=== PATIENT | male | born 1955 | race Caucasian/White ===

== ENCOUNTER 2017-01-01 15:12 | Inpatient (IN) | payer MEDICARE, OTHER ==
--- NOTE | ~2017-01-01 | DS ---
Discharge Summary [facility] [address] [facility] [place]. [address] NAME: JEANETTE REYNOSO : 55 STATUS : ADM IN PAT#: [id number] AGE: 61 ADM/REG DATE : 01/01/17 MR#: [id number] REPORT SERV DATE: 01/10/17 DICTATED BY: MICAH PALOMO DATE: 01/10/17 REPORT STATUS : Draft TRANSCRIBED BY: MODL DATE: 01/10/17 ADMISSION DATE: 01/01/2017 DISCHARGE DATE: 01/10/2017 FINAL HOSPITAL DIAGNOSES: 1. Flu/pneumonia. 2. End-stage Lewy body dementia. 3. Acute kidney injury. CONSULTATIONS: Hospice. PROCEDURES: As listed in interim summary. CURRENT PHYSICAL FINDINGS AND HISTORY OF PRESENT ILLNESS: Please see initial dictated H and P on 12/28/[address] Serrato as well as summary by Dr. Seymour on 01/06/2017. I took over the patient's care on 01/10/2017 and will dictate to that point. The patient was to be transferred out on 01/06/2017; however, placement could not be obtained. He was finishing therapy for influenza and respiratory symptoms have been stable. He had been evaluated by hospice and they had accepted his care. Family members had been well informed of decisions and treatment plans and they were in full agreement. They felt he would need more care than could be delivered at [facility] and wished to go to [facility] with hospice services, which was certainly reasonable given his current situation. On the day of transfer, the family stated that the patient was at his baseline mental status. He was tolerating p.o. well. He was having routine bowel movements. He did not seem to be in any distress and they were comfortable with him discharging. His vital signs were stable. His exam showed good breath sounds. Regular heart rate and his abdominal exam, he had no guarding or rebound and he did have positive bowel sounds. DISPOSITION: He was discharged to [facility] with hospice care with orders and medications per hospice. CORTEZ/ADALGISA Micah Palomo M.D. / [id number] CC: Luzma Monsalve,KODY LAROSE
--- NOTE | ~2017-01-01 | DS ---
Discharge Summary [facility] [address] [place]. [address] NAME: JEANETTE DAVILA : 55 STATUS : DIS IN PAT#: [id number] AGE: 61 ADM/REG DATE : 01/01/17 MR#: [id number] REPORT SERV DATE: 01/11/17 DICTATED BY: MICAH PALOMO DATE: 01/11/17 REPORT STATUS : Draft TRANSCRIBED BY: MODL DATE: 01/11/17 ADMISSION DATE: 01/01/2017 DISCHARGE DATE: 01/11/2017 ADDENDUM: Mr. Davila was to be discharged yesterday to [facility] with hospice care, however, his PASSOR could not be validated yesterday. He was approved for discharge today. He was discharged to [facility] with hospice care prior to my arrival on today's date. MAGDYF/ADALGISA Micah Palomo M.D. / [id number] CC: Luzma Monsalve
--- NOTE | ~2017-01-01 | DS ---
Discharge Summary [facility] [address] [place]. [address] NAME: JEANETTE REYNOSO : 55 STATUS : ADM IN [facility]#: [id number] AGE: 61 ADM/REG DATE : 01/01/17 MR#: [id number] REPORT SERV DATE: 01/06/17 DICTATED BY: BINH FLOREZ DATE: 01/05/17 REPORT STATUS : Draft TRANSCRIBED BY: MODL DATE: 01/05/17 ADMISSION DATE: 01/01/2017 DISCHARGE DATE: 01/05/2017 PRINCIPAL DIAGNOSIS: Influenza type A. SECONDARY DIAGNOSIS: End-stage Lewy body dementia with acute metabolic encephalopathy, atelectasis. HISTORY OF PRESENT ILLNESS: Please see Dr. Serrato's dictation, 01/01/2017. HOSPITAL COURSE: Admitted with suspected pneumonia due to left lower lobe infiltrate but positive for flu A. The patient had high fevers lasting about four days that finally defervesced by 01/05/2017. He was given antibiotics empirically due to elevated procalcitonin and the abdomen infiltrate however follow up x-ray showed clearance of the atelectasis, but he did eventually wake up. He tolerated p.o., passed a bedside swallow evaluation, and ultimately was referred to a [facility] where the family wished to undergo hospice care. He was transferred on 01/05/2017 in satisfactory condition finishing a Tamiflu tomorrow and Levaquin in two days. Efforts to ongoing weaning of his psychiatric medications were ongoing as he was beyond the point of benefit for acetylcholinesterase inhibitors or Namenda. Greater than 30 minutes were spent with the patient on discharge planning on discharge day. RADHA/ADALGISA Binh Florez M.D. / [id number] CC: Luzma Ratliff MD [facility]
--- NOTE | ~2017-01-01 | HP ---
History And Physical [place] [id number] [facility] [place]. [address] NAME: JEANETTE REYNOSO : 55 STATUS : REG ER PAT#: [id number] AGE: 61 ADM/REG DATE : 01/01/17 MR#: [id number] REPORT SERV DATE: 01/01/17 DICTATED BY: LUISANA ZAMARRIPA DATE: 01/01/17 REPORT STATUS : Draft TRANSCRIBED BY: MODL DATE: 01/01/17 DATE OF ADMISSION: 01/01/2017 HISTORY OF PRESENT ILLNESS: This is a 61-year-old male who presented to [facility] accompanied with his family. The patient has altered level of consciousness, and he is unable to respond, now he is completely unresponsive. He is staying at [facility], and he developed for symptoms on Monday. He was having cough. He became lethargic. His primary care physician is Tato Ruelas, but now because he is at [facility], he is seen by another physician. The patient's brother who is the power of transactional attorney reported that the patient has advanced Lewy body dementia, and now he is unable to take care of himself. He is dependent on his daily activities. He is not able to dress, he his unable to eat himself, so this is why he is in [facility]. On Monday he developed fever cough, nonproductive, he became lethargic yesterday and today. Yesterday when brother was feeding him, he noticed that he is not himself. Today, he was told that he needs to be brought to the hospital. The patient is lethargic, he is not opening his eyes, but he is responding to mild pinching with a smile. All history was collected from patient's brother and patient's girlfriend. The patient's brother reported that the patient was diagnosed with Lewy body dementia. His neurologist is Dr. Disla and he as I dictated above now progressed so much that he is unable to perform his daily activities and he is at [facility], as well as the patient's girlfriend reported that 2 years ago when he had illness, he responded same way, he became lethargic, and also at [facility] they thought maybe he aspirated also when he became lethargic. The patient's brother reported that the patient was in general health, he did not have any illnesses, and he did not have any surgeries other than tonsillectomy. ALLERGIES: HE IS NOT ALLERGIC TO ANY MEDICATIONS. SOCIAL HISTORY: No smoking. No alcohol. No recreational drug use. He does not have children. FAMILY HISTORY: Mother of rheumatoid arthritis at age of 62, father of congestive heart failure at the age of 93. HOME MEDICATIONS: Tylenol 325 p.o. q.4 hours p.r.n., acetylcysteine 600 mg b.i.d., aspirin 81 mg daily, vitamin D3 1000 units daily, Celexa 40 mg daily, Depakote 1000 mg with supper and 500 daily, Aricept 10 mg with supper, Mucinex 10 mL q.12 hours, Ativan 0.5 daily, Namenda 10 mg twice a day, prazosin 2 mg p.o. with supper, Seroquel 25 twice daily p.r.n. REVIEW OF SYSTEMS: I am unable to perform review of systems because the patient is unresponsive. PHYSICAL EXAMINATION: GENERAL: Well-nourished, well-developed male, not in acute distress. Has some wheezing on breathing. VITAL SIGNS: Blood pressure 115/74, temperature according to the patient's brother was 102.8 today and now 99.5, heart rate 91, respiratory rate 25, oxygen saturation 91 on 4 L nasal History And Physical [address] [address] NAME: JEANETTE REYNOSO : 55 STATUS : REG ER PAT#: [id number] AGE: 61 ADM/REG DATE : 01/01/17 MR#: [id number] REPORT SERV DATE: 01/01/17 DICTATED BY: LUISANA ZAMARRIPA DATE: 01/01/17 REPORT STATUS : Draft TRANSCRIBED BY: MODL DATE: 01/01/17 cannula. I want to mention that on presentation, he was on a non-rebreather, but now he is only on 4 L nasal cannula. HEENT: Head atraumatic, normocephalic. Conjunctivae clear. Pupils are equal and reactive to light and accommodation. Extraocular muscles are intact. NECK: Supple. Trachea is midline. No supraclavicular or cervical lymphadenopathy. LUNGS: Positive wheezing bilaterally, anteriorly and posteriorly. Normal respiratory effort. CARDIOVASCULAR SYSTEM: Regular rate and rhythm. Lkvdf-gy-fuplbof impulse not displaced. ABDOMEN: Soft, nontender, nondistended. Positive bowel sounds. No organomegaly. EXTREMITIES: No clubbing, cyanosis, or edema. NEUROLOGICAL: He is sleepy. He is lethargic. He is able to respond with smile to the pinching. His pupils are equal and reactive to light. He is not responsive to voice and touch. SKIN: Normal color and turgor. LABORATORY RESULTS: ABG: PH of 7.5, pCO2 of 30, PO2 of 59, bicarbonate 23.3, oxygen saturation 93.3 on 4 L of oxygen. Sodium 148, potassium 3.6, chloride 109, carbon dioxide 27, BUN 21, creatinine 1.47, blood sugar is 124. ALT 14, AST 32, troponin 0.22. White count 11.9, hemoglobin 15.6, hematocrit 44.4, and MCV 100.2, platelet count 77, there are 35% bands. Urinalysis showed trace ketones, no evidence of UTI. Blood cultures are already drawn in the emergency room and currently pending. Chest x-ray personally reviewed by me and showed infiltrate in the left lower lung. CT of the brain without contrast showed enlarged ventriculomegaly out of proportion to the enlargement of the overlying sulci. Differential diagnosis includes central pattern of diffuse cerebral involutional changes with marked progression since 2008. Stenosis at the level of aqueduct of Sylvius communicating hydrocephalus or normal pressure hydrocephalus. No acute intracranial hemorrhage. Pansinusitis with fluid levels within the bilateral frontal ethmoid and maxillary and sphenoid sinuses consistent with acute sinusitis pattern. ASSESSMENT AND PLAN: This is a 61-year-old male with advanced Lewy body dementia, currently detention, DNR status, presented with: 1. Unresponsiveness .. 2. Influenza type A. 3. Sepsis. 4. Fever. 5. Pneumonia. 6. Encephalopathy. 7. Acute kidney injury. 8. Thrombocytopenia. 9. Elevated troponin. History And Physical [address] [address] NAME: JEANETTE REYNOSO : 55 STATUS : REG ER PAT#: [id number] AGE: 61 ADM/REG DATE : 01/01/17 MR#: [id number] REPORT SERV DATE: 01/01/17 DICTATED BY: LUISANA ZAMARRIPA DATE: 01/01/17 REPORT STATUS : Draft TRANSCRIBED BY: MODL DATE: 01/01/17 10.DNR status. 11.Lewy body dementia. The patient will be admitted to telemetry bed. The patient for his dehydration and acute kidney injury, he will be started on IV fluids. For his pneumonia and sepsis, he will be started on intravenous cefepime, azithromycin, and vancomycin. Influenza type A, we will start him on Tamiflu if he will be able to take medications by mouth. Elevated troponin, most likely this is demand ischemia. We will also start the patient on low-dose steroids since he is wheezing as well. Overall, the patient is very sick, septic, and the patient is in DNR status and family is aware of this and my partner will see this patient starting tomorrow morning. We will also do frequent neuro checks and his thrombocytopenia also related to sepsis. MG/ADALGISA Luisana Zamarripa M.D. / [id number] CC: Priyank Gonzalez MD
[2017-01-01 14:12] LABS: HEMATOCRIT 44.4 % (40.0-51.0); HEMOGLOBIN 15.6 g/dL (13.6-17.8); MEAN CORPUS HGB CONC 35.1 g/dL (32.0-36.0); MEAN CORPUSCULAR HEMOGLOB 35.2 pg (26.0-34.0); MEAN PLATELET VOLUME 10.7 fL (9.2-13.0); RBC DISTRIBUTION WIDTH 12.5 % (12.0-16.0); RED CELL COUNT 4.43 10/6/uL (4.7-6.1); WHITE BLOOD CELLS 11.9 10/3/uL (4.5-10.5)
[2017-01-01 14:13] LABS: MANUAL DIFF YES %; MEAN CORPUSCULAR VOLUME 100.2 fL (80-100); PLATELET COUNT 77 10/3/uL (150-400)
[2017-01-01 14:26] LABS: ALLENS TEST Pos; BE (BASE EXCESS) 1.2 MEQ/L (0 +/- 2.5); CARBOXYHEMOGLOBIN 2.1 % (0-3); DEVICE NC; HCO3 (ACTUAL BICARBONATE) 23.3 MEQ/L (23-27); HEMOBLOGIN CONTENT 15.2 G/DL (14-18); INSTRUMENT SERIAL # 8087; METHEMOGLOBIN 0.3 % (0-3); O2 CONTENT 19.4 VOL% (18-24); OPERATOR ID 14335; PCO2 (CO2 TENSION) 30 MMHG (35-45); PO2 (O2 TENSION) 59 MMHG (79-93); SAMPLE Arterial
[2017-01-01 14:33] LABS: BAND NEUTROPHILS 35 %; ER DIFF TAT 0 Hrs 25 Mins; IMMATURE GRANS ABSOLUTE (CALC) 0.36 10/3/uL (0.0-0.11); LYMPHOCYTES 12 %; LYMPHOCYTES ABSOLUTE (CALC) 1.43 10/3/uL (0.67-4.30); METAMYELOCYTES 3 %; MONOCYTES 24 %; MONOCYTES ABSOLUTE (CALC) 2.86 10/3/uL (0.21-1.20); NEUTROPHILS ABSOLUTE (CALC) 7.26 10/3/uL (2.02-8.40); PLATELET ESTIMATE DEC (ADEQUATE); RBC MORPHOLOGY NORM (NORMAL); REACTIVE LYMPHS FEW (3-5%) (0-5%); SEGMENTED NEUTROPHIL (0) 26 %; TOTAL NUCLEATED CELLS 100
[2017-01-01 14:41] LABS: A/G RATIO 0.7 (0.7-1.9); CALCIUM, SERUM 9.2 MG/DL (8.5-10.4); CHLORIDE, SERUM 109 MMOL/L (96-112); CO2 (CARBON DIOXIDE) 27 MMOL/L (24-34); CREATININE 1.47 MG/DL (0.70-1.30); GFR AFRICAN AMERICAN 59 ML/MIN (>=60); GFR NON AFRICAN AMERICAN 51 ML/MIN (>=60); GLOBULIN 4.3 G/DL (2.5-4.1); POTASSIUM, SERUM 3.6 MMOL/L (3.5-5.3); SGOT(AST) 32 U/L (5-40); SGPT(ALT) 14 U/L (5-65); TOTAL BILIRUBIN 1.2 MG/DL (0-1.2); TOTAL PROTEIN 7.3 G/DL (6.0-8.5)
[2017-01-01 14:44] LABS: ALKALINE PHOSPHATASE 38 U/L (45-117); BUN (BLOOD UREA NITROGEN) 21 MG/DL (6-23); GLUCOSE, SERUM 124 MG/DL (60-99); SODIUM, SERUM 148 MMOL/L (135-148); TROPONIN I 0.22 NG/ML (<0.05)
[2017-01-01 15:09] LABS: ASCORBIC ACID (UR NOT ORDER) NEG (NEG); BILIRUBIN, URINE NEGATIVE (NEG); ER URINALYSIS TAT 0 Hrs 11 Mins; KETONE, URINE TRACE MG/DL (NEG); LEUKOCYTE ESTERASE(NOT OR NEG (NEG); NITRITE (URINE) NEG (NEG); WBC (NOT ORDERED) (RFLEX) 2 (0-5)
[2017-01-01] MEDS ORDERED: CELEXA40 MG PO (15:13)
[2017-01-01] MEDS ORDERED: HALF81 PO (15:13)
[2017-01-01] MEDS ORDERED: DEPAKOT500 PO ×2 (15:14→15:22)
[2017-01-01] MEDS ORDERED: ARICEPT10 PO (15:15)
[2017-01-01] MEDS ORDERED: SILTUSSIN100 MG/5 M PO (15:17)
[2017-01-01] MEDS ORDERED: ATV.5 PO (15:17)
[2017-01-01] MEDS ORDERED: PRAZOSIN HCL1 MG PO (15:18)
[2017-01-01] MEDS ORDERED: NAMENDA10 MG PO (15:18)
[2017-01-01] MEDS ORDERED: NAC 600 PO (15:19)
[2017-01-01] MEDS ORDERED: VITAMIN D31000 UNIT PO (15:20)
[2017-01-01] MEDS ORDERED: SEROQUEL25 PO (15:21)
[2017-01-01] MEDS ORDERED: T PO (15:21)
[2017-01-01 16:47] LABS: INFLUENZA A SCREEN POSITIVE (NEGATIVE); INFLUENZA B SCREEN NEGATIVE (NEGATIVE)
[2017-01-02 00:33] LABS: FOLATE 4.5 NG/ML (>5.2)
[2017-01-02 00:34] LABS: TROPONIN I 0.16 NG/ML (<0.05); ULTRASENSITIVE TSH 0.608 MCIU/ML (0.358-3.740)
[2017-01-02 00:46] LABS: PROCALCITONIN 4.22 ng/mL (<0.5)
[2017-01-02 07:00] LABS: BASOPHILS 0.2 %; BASOPHILS ABSOLUTE 0.02 10/3/uL (0.0-0.16); EOSINOPHILS 0 %; HEMATOCRIT 40.7 % (40.0-51.0); IMMATURE GRANULOCYTES 0.8 %; IMMATURE GRANULOCYTES ABSOLUTE 0.09 10/3/uL (0.0-0.11); LYMPHOCYTES 6.1 %; LYMPHOCYTES ABSOLUTE 0.66 10/3/uL (0.67-4.30); MEAN CORPUS HGB CONC 34.4 g/dL (32.0-36.0); MEAN CORPUSCULAR HEMOGLOB 34.2 pg (26.0-34.0); MEAN CORPUSCULAR VOLUME 99.5 fL (80-100); MEAN PLATELET VOLUME 10.8 fL (9.2-13.0); MONOCYTES 12.1 %; MONOCYTES ABSOLUTE 1.31 10/3/uL (0.21-1.20); NEUTROPHILS 80.8 %; NEUTROPHILS ABSOLUTE 8.75 10/3/uL (2.02-8.40); PLATELET COUNT 74 10/3/uL (150-400); RBC DISTRIBUTION WIDTH 12.5 % (12.0-16.0); RED CELL COUNT 4.09 10/6/uL (4.7-6.1); WHITE BLOOD CELLS 10.8 10/3/uL (4.5-10.5)
[2017-01-02 07:08] LABS: MANUAL DIFF NO %
[2017-01-02 07:24] LABS: BUN (BLOOD UREA NITROGEN) 22 MG/DL (6-23); CALCIUM, SERUM 8.7 MG/DL (8.5-10.4); CHLORIDE, SERUM 111 MMOL/L (96-112); CO2 (CARBON DIOXIDE) 25 MMOL/L (24-34); CREATININE 0.98 MG/DL (0.70-1.30); GFR AFRICAN AMERICAN 96 ML/MIN (>=60); GFR NON AFRICAN AMERICAN 83 ML/MIN (>=60); POTASSIUM, SERUM 3.2 MMOL/L (3.5-5.3); SODIUM, SERUM 147 MMOL/L (135-148)
[2017-01-02 07:25] LABS: GLUCOSE, SERUM 164 MG/DL (60-99)
[2017-01-02 13:17] LABS: DEPAKENE (VALPROIC ACID) 73.2 MCG/ML (50.0-100.0)
[2017-01-03 11:14] LABS: CREATININE 1.07 MG/DL (0.70-1.30)
[2017-01-04 04:58] LABS: HEMOGLOBIN 12.7 g/dL (13.6-17.8); MEAN CORPUS HGB CONC 35.6 g/dL (32.0-36.0); MEAN CORPUSCULAR HEMOGLOB 35.4 pg (26.0-34.0); MEAN CORPUSCULAR VOLUME 99.4 fL (80-100); MEAN PLATELET VOLUME 11.8 fL (9.2-13.0); RBC DISTRIBUTION WIDTH 12.7 % (12.0-16.0); RED CELL COUNT 3.59 10/6/uL (4.7-6.1); WHITE BLOOD CELLS 9.4 10/3/uL (4.5-10.5)
[2017-01-04 04:59] LABS: HEMATOCRIT 35.7 % (40.0-51.0); MANUAL DIFF YES %; PLATELET COUNT 195 10/3/uL (150-400)
[2017-01-04 05:33] LABS: BAND NEUTROPHILS 12 %; IMMATURE GRANS ABSOLUTE (CALC) 0.09 10/3/uL (0.0-0.11); LYMPHOCYTES 21 %; LYMPHOCYTES ABSOLUTE (CALC) 1.97 10/3/uL (0.67-4.30); METAMYELOCYTES 1 %; MONOCYTES 9 %; MONOCYTES ABSOLUTE (CALC) 0.85 10/3/uL (0.21-1.20); NEUTROPHILS ABSOLUTE (CALC) 6.49 10/3/uL (2.02-8.40); PLATELET ESTIMATE ADQ (ADEQUATE); RBC MORPHOLOGY NORM (NORMAL); SEGMENTED NEUTROPHIL (0) 57 %; TOTAL NUCLEATED CELLS 100
[2017-01-04 06:52] LABS: CALCIUM, SERUM 8.2 MG/DL (8.5-10.4); CHLORIDE, SERUM 112 MMOL/L (96-112); CO2 (CARBON DIOXIDE) 26 MMOL/L (24-34); DEPAKENE (VALPROIC ACID) 68.7 MCG/ML (50.0-100.0); GFR AFRICAN AMERICAN 106 ML/MIN (>=60); GFR NON AFRICAN AMERICAN 92 ML/MIN (>=60); GLUCOSE, SERUM 140 MG/DL (60-99); POTASSIUM, SERUM 3.4 MMOL/L (3.5-5.3); SODIUM, SERUM 148 MMOL/L (135-148)
[2017-01-04 06:54] LABS: BUN (BLOOD UREA NITROGEN) 17 MG/DL (6-23)
[2017-01-04 07:45] LABS: PROCALCITONIN 1.84 ng/mL (<0.5)
[2017-01-04 10:11] LABS: BUN (BLOOD UREA NITROGEN) 18 MG/DL (6-23); CALCIUM, SERUM 8.3 MG/DL (8.5-10.4); CHLORIDE, SERUM 112 MMOL/L (96-112); CO2 (CARBON DIOXIDE) 27 MMOL/L (24-34); CREATININE 0.98 MG/DL (0.70-1.30); GFR AFRICAN AMERICAN 96 ML/MIN (>=60); GFR NON AFRICAN AMERICAN 83 ML/MIN (>=60); GLUCOSE, SERUM 143 MG/DL (60-99); POTASSIUM, SERUM 3.4 MMOL/L (3.5-5.3); SODIUM, SERUM 146 MMOL/L (135-148)
[2017-01-04] MEDS ORDERED: DEPAKOT500 PO (11:26)
[2017-01-04] MEDS ORDERED: TAMIFLU PO (11:33)
[2017-01-04] MEDS ORDERED: LEVAQUIN750 MG PO (11:34)
[2017-01-04] MEDS ORDERED: DUONEB INH (11:36)
== END 2017-01-11 13:19 | disposition hospice, inpatient (51) | DRG 871 ==
LOC: ER 15:12 → 4SO 21:45
PROVIDERS: Hospitalist; Internal Medicine
DX: A41.89 Other specified sepsis (principal); G93.41 Metabolic encephalopathy; N17.9 Acute kidney failure, unspecified; J10.00 Influenza due to other identified influenza virus with unspecified type of pneumonia; D69.6 Thrombocytopenia, unspecified; J18.9 Pneumonia, unspecified organism; I24.8 Other forms of acute ischemic heart disease; J98.11 Atelectasis; J10.1 Influenza due to other identified influenza virus with other respiratory manifestations; R65.20 Severe sepsis without septic shock; Z66 Do not resuscitate; G31.83 Neurocognitive disorder with Lewy bodies; F02.80 Dementia in other diseases classified elsewhere, unspecified severity, without behavioral disturbance, psychotic disturbance, mood disturbance, and anxiety; E86.0 Dehydration; Z51.5 Encounter for palliative care; Y95 Nosocomial condition
CPT/HCPCS: 36600; 70450; 71010; 80048; 80053; 80164; 81001; 82140; 82565; 82607; 82746; 82805; 83605; 83735; 84132; 84145; 84443; 84484; 85025; 87040; 87804; 92610-GN; 93005; 94640; 96374; 96375; 99285; A9270-GY; G8996-CK-GN; G8997-CK-GN; G8998-CK-GN; J0456; J0692; J1956; J2543; J2920; J3370